=== PATIENT | female | born 1955 | race Caucasian/White ===

== ENCOUNTER 2019-07-20 06:00 | Emergency (ER) | payer OTHER, SELFPAY ==
[2019-07-20 06:01] VITALS: BP 150/93; PULSE 81; RESP 18; TEMP 36.7; O2SAT 98; BMI 34.8
--- NOTE | 2019-07-20 06:10 | RAD_ITS ---
STUDY: X-RAY - RIGHT KNEE REASON FOR EXAM: Female, 64 years old. Twisting injury about 3 weeks ago. Persistent right knee pain. Unable to bear weight due to being unsteady. TECHNIQUE: 3 view(s) of the knee. COMPARISON: None. FINDINGS: Normal visualized distal femur. Normal visualized proximal tibia and fibula. Normal proximal tibiofibular articulation. Normal medial femorotibial compartment. Normal lateral femorotibial compartment. There is mild degenerative arthrosis of the patellofemoral articulation. There is a soft tissue prominence in the suprapatellar region suggesting a small volume joint effusion. The soft tissue structures are unremarkable. RAD/Knee 3 Views IMPRESSION: Mild degenerative changes. Suggestion of a very small joint effusion. No demonstrated fracture, dislocation, or destructive osseous lesion. Electronically Signed: Richard Vega MD at 6:33 EDT , Service support ,
--- NOTE | 2019-07-20 06:19 | ED.VIS.LOWEX ---
History of Present Illness Chief Complaint: Lower Extremity Injury Narrative: Patient presenting for evaluation secondary to right knee pain. Patient reports that this been going on for quite some time, she feels that potentially she may have twisted it and that is what precipitated her to have pain. She reports that it is a relatively continuous pain that seems to be worse with bearing weight on the leg. Patient states that she gets some pops and clicks when she moves her leg. She denies any fevers, night sweats, unintended weight loss associated with this. No recent surgeries or injections. Patient states she has been wearing a brace, and been taking intermittent Advil and using topical creams and has not received any sort of relief for this. She denies any numbness or weakness. Review of systems otherwise negative. Past Medical History - Allergies and Home Meds Allergies/Adverse Reactions: Allergies No Known Allergies Allergy (Verified 07/20/19 06:00) Primary Care Physician: Ryan Acosta DO [Primary Care Provider] - Past Medical History: None Smoking Status: Never smoker Review of Systems All systems negative except as indicated General: Denies: Chills, Fever, Weight loss Musculoskeletal: Reports: Arthralgias Skin: Denies: Rash Hematologic: Denies: Easy bruising Physical Exam Vital Signs/Narrative: Vital Signs Temp Pulse Resp BP Pulse Ox 07/20/19 06:01 98.0 F 81 18 150/93 H 98 Inital Vital Signs reviewed: Yes - Extremity Exam Right Knee: - - Examination the patient's right lower extremity shows normal distal pulses normal distal sensation, no pain or limited range of motion of the foot or ankle. No pain or limited range of motion of the hip. Patient has normal active and passive range of motion of the knee, with very minimal crepitance with full range of motion of the knee. No evidence of warmth, joint effusion, or overlying erythema. Very minimal medial joint line tenderness. No laxity with Lockman, posterior drawer, varus, or valgus stress. Diagnostic/Tx/Re-eval Chest X-Ray - ED: - - 3 view of the right knee by my personal interpretation as well as radiology shows some medial joint space narrowing but no evidence of fracture - Medical Decision Making Patient presenting for evaluation secondary to knee pain. There does not appear to be any sort of ligamentous laxity. No signs or symptoms consistent with septic arthritis. X-ray of the knee demonstrates some osteoarthritis and a mild joint effusion. This point I believe the patient is appropriate for treatment with oral anti-inflammatories. Patient will be placed on a course of Mobic. She will be given referral to orthopedics should she not have improvement and require further intervention such as injections or surgery. All questions were answered and the patient was discharged. ED Disposition - Plan for ED Patient: Disposition: Home or Assisted Living Diagnosis: Arthritis of right knee Instructions: ED Osteoarthritis Prescriptions: Meloxicam [Mobic] 7.5 mg PO DAILY #30 tab Prescription Printed Referrals: Ryder Gatica DO [STAFF PHYSICIAN] - As Needed
[2019-07-20] MEDS: Meloxicam 7.5 MG Tablet PO (07:03)
== END 2019-07-20 07:07 | disposition home or self-care (01) ==
PROVIDERS: Emergency Provider Emergency Medicine; Family Provider Student in an Organized Health Care Education/Training Program; PCP Student in an Organized Health Care Education/Training Program
DX: M17.11 Unilateral primary osteoarthritis, right knee (principal)
CPT/HCPCS: 73562; 99283

== ENCOUNTER → 2019-07-25 08:10 | Outpatient (CLI) | payer OTHER, SELFPAY ==
[2019-07-25 07:55] VITALS: BMI 34.0
--- NOTE | 2019-07-25 08:12 | RAD_ITS ---
STUDY: X-RAY - RIGHT KNEE REASON FOR EXAM: Female, 64 years old. Pain. Twisting injury. TECHNIQUE: 3 view(s) of the knee. COMPARISON: None. FINDINGS: Normal visualized distal femur. Normal visualized proximal tibia and fibula. Normal proximal tibiofibular articulation. There is no demonstrated fracture. There is mild degenerative arthrosis of the medial femorotibial compartment. Normal lateral femorotibial compartment. There is mild degenerative arthrosis of the patellofemoral articulation. The soft tissue structures are unremarkable. RAD/Knee 4 or More Views IMPRESSION: Mild degenerative change Electronically Signed: Rodney Mcclure MD at 12:06 EDT , Service support ,
== END ==
PROVIDERS: Family Provider Student in an Organized Health Care Education/Training Program; PCP Student in an Organized Health Care Education/Training Program; Referring Provider Orthopaedic Surgery; Visit Provider Orthopaedic Surgery
DX: M25.561 Pain in right knee (principal)
CPT/HCPCS: 73564

== ENCOUNTER 2021-01-05 16:54 | Emergency (ER) | payer OTHER, SELFPAY ==
[2020-12-11 08:13] VITALS: BMI 35.6
[2021-01-05 16:55] VITALS: BP 153/71; PULSE 75; RESP 18; TEMP 37; O2SAT 97; BMI 34.9
--- NOTE | 2021-01-05 17:36 | ED.DCSUM_ITS ---
- ER Visit Summary Date of Service: 01/05/21 Chief Complaint: Left hip and groin pain History of Present Illness: The patient is a 65 F who presents with left hip and groin pain that began after a fall 2 weeks ago. Patient states she slipped on the ice and fell backwards. Patient states initially her pain was in her hip. Patient states now her pain is more in her groin area. Patient states the pain is worse with weightbearing. Patient denies any head injury or loss of consciousness with the fall. Patient denies any paresthesias or weakness. Patient denies any other injuries. Physical Examination: Vital signs are stable. Patient is afebrile. Patient is in no acute distress. Musculoskeletal exam shows no tenderness to palpation in the left inguinal area. There is no pain over the pelvis with AP and lateral compression. There is no deformity of the left lower extremity. There is no pain with internal or external rotation. There is no calf tenderness. Pedal pulses are equal bilateral. Sensation was intact to light touch bilaterally in the lower extremities. Test Results: X-rays of the left hip and pelvis were obtained. There are 3 views. On my interpretation, there is no acute fracture. There is no loosening of the prosthesis. There is no dislocation. Radiologist also interpreted the x-rays and agrees. Emergency Department Course and Treatment: Patient was advised of her findings. Patient was instructed use ice to the area. Patient was advised that this is most likely muscular strain. Patient was instructed to take Tylenol or ibuprofen as needed for pain. Patient was instructed to follow-up with her primary care physician in 5 to 7 days. Patient understood and was agreeable with the plan. All questions were answered. Disposition: Discharge home Impression: 1. Left hip strain This note was generated with [employer]ation software. It may contain incorrect words, spelling, and punctuation that were not noted in review of the chart prior to signing ED Disposition - Plan for ED Patient: Disposition: Home or Assisted Living Diagnosis: Strain of left hip Instructions: ED Hip Strain Referrals: Ryan Acosta DO [Primary Care Provider] - 5-7 Days
--- NOTE | 2021-01-05 18:00 | RAD_ITS ---
STUDY: X-RAY - PELVIS AND LEFT HIP REASON FOR EXAM: Female, 65 years old. LEFT ANTERIOR HIP/GROIN PAIN. FALL ON CEMENT ABOUT 2 WEEKS AGO LANDING ON BUTTOCKS. TECHNIQUE: 3 views of the pelvis and hip. COMPARISON: Pelvic x-ray dated June 26, 2016. FINDINGS: There is a non-specific bowel gas pattern. Normal visualized soft tissue structures. No fracture is present. Normal bilateral iliac wings, sacroiliac joints and visualized sacrum. Normal bilateral superior and inferior pubic rami. Normal pubic symphysis. Normal bilateral ischial tuberosities. Normal visualized femoral head. Normal acetabulum. Stable left hip prosthesis without complications. Normal right hip joint. RAD/HIP, UNI W/ Pelvis 2-3 Views IMPRESSION: Normal x-ray examination of the pelvis and hip. Electronically Signed: Jed Manzo MD at 18:37 EST , Service support ,
[2021-01-05 19:03] VITALS: BP 121/81; PULSE 75; RESP 15; O2SAT 98
== END 2021-01-05 19:04 | disposition home or self-care (01) ==
PROVIDERS: Emergency Provider Emergency Medicine; PCP Student in an Organized Health Care Education/Training Program
DX: S76.012A Strain of muscle, fascia and tendon of left hip, initial encounter (principal); E78.00 Pure hypercholesterolemia, unspecified; W00.0XXA Fall on same level due to ice and snow, initial encounter
CPT/HCPCS: 73502; 99282